=== PATIENT | female | born 1995 | race Two or more races ===

== ENCOUNTER 2018-04-27 22:06 | Emergency (ER) | payer OTHER ==
[~2018-04-27] VITALS: Ht 170.2 cm; Wt 57.2 kg
[2018-04-27 22:35] VITALS: BP 117/62
[2018-04-27] MEDS ORDERED: LEVOTHYROXINE75 MCG ORAL (22:36)
[2018-04-27] MEDS ORDERED: Clindamycin 900mg 50 ML IVPB ONE (23:15)
[2018-04-28] MEDS ORDERED: CLINDAMYCIN HC300 MG ORAL (00:18)
--- NOTE | 2018-04-28 00:18 | Emergency Room Report ---
History of Present Illness General Chief Complaint: Skin Rash/Abscess Source: Patient Present Illness HPI Is a 23-year-old female with no past medical history. She presents with skin infection. She woke up 2 days ago with some rash on her left leg. Itching is worsen. Now with swelling and drainage. No fever chills. No nausea no vomiting. Denies any other complaint. No insect bite that she knew of. Worse with itching and scratching. Allergies: Coded Allergies: No Known Allergies (Unverified , 04/27/18) Patient History Past Medical History: see triage record, old chart reviewed Past Surgical History: none Pertinent Family History: none Social History: Denies: smoking Last Menstrual Period: 2 weeks ago Now: No Immunizations: other Reviewed Nursing Documentation: PMH: Agreed; PSxH: Agreed Review of Systems Eye: Denies: eye pain, blurred vision ENT: Denies: ear pain, nose congestion, throat swelling Respiratory: Denies: cough, shortness of breath Cardiovascular: Denies: chest pain, palpitations Gastrointestinal: Denies: abdominal pain, diarrhea, nausea, vomiting Musculoskeletal: Denies: back pain, joint pain Skin: Reports: rash Neurological: Denies: headache, numbness Endocrine: Denies: increased thirst, increased urine Hematologic/Lymphatic: Denies: easy bruising All Other Systems: negative except mentioned in HPI Physical Exam Vital Signs Date Time Temp Pulse Resp B/P (MAP) Pulse Ox O2 Delivery O2 Flow Rate FiO2 04/27/18 22:31 98.1 72 16 117/62 96 Room Air 98.1 vitals normal Sp02 EP Interpretation: reviewed, normal General Appearance: well appearing, no apparent distress, alert Head: normocephalic, atraumatic Eyes: bilateral eye PERRL, bilateral eye EOMI ENT: hearing grossly normal, normal pharynx Neck: full range of motion, supple, no meningismus Respiratory: chest non-tender, lungs clear, normal breath sounds Cardiovascular #1: regular rate, rhythm, no murmur Gastrointestinal: normal bowel sounds, non tender, no mass, no organomegaly, no bruit, non-distended Musculoskeletal: back normal, gait/station normal, normal range of motion Psychiatric: mood/affect normal Skin: warm/dry, other - She has scattered area of erythema on the lateral aspect of the left leg up the thigh. Each area has pinpoint area of redness with surrounding erythema. The one near her ankle has edema and weeping. Medical Decision Making Diagnostic Impression: Primary Impression: Cellulitis of leg without foot, left ER Course She was cellulitis of her left leg. She did shave her legs are suspect this may be secondary to MRSA and infection of the hair follicle. Antibiotics IV given here. No evidence of any abscess seen. I did culture up one of the weeping lesion. No evidence of DVT. No evidence of necrotizing fasciitis. Last Vital Signs Date Time Temp Pulse Resp B/P (MAP) Pulse Ox O2 Delivery O2 Flow Rate FiO2 04/27/18 22:35 98.1 72 16 117/62 96 Room Air 98.1 Status: improved Disposition: HOME, SELF-CARE Condition: Stable Scripts Clindamycin Hcl (CLINDAMYCIN HCL) 300 Mg Capsule 300 MG ORAL THREE TIMES A DAY, #21 CAP Prov: DYAN SPARKS M.D. 04/28/18 Referrals: [facility],REFERRING (PCP) Additional Instructions: Follow-up with your DrManny or return here in 2 days for recheck. Return if symptom worsen. DYAN SPARKS M.D. Apr 28, 2018 00:18
[2018-04-28 00:30] VITALS: BP 95/63
== END 2018-04-28 00:30 | disposition home or self-care (01) ==
LOC: EMR 22:52
DX: L03.116 Cellulitis of left lower limb (principal)
CPT/HCPCS: 87070; 87205; 96365; 99284; S0077; 99283

== ENCOUNTER 2018-12-04 18:16 | Emergency (ER) | payer OTHER ==
[~2018-12-04] VITALS: Ht 170.2 cm; Wt 59.0 kg
[~2018-12-04 18:16] MED LIST: CLINDAMYCIN HC300 MG ORAL; LEVOTHYROXINE75 MCG ORAL
[2018-12-04] MEDS ORDERED: Acetaminophen 500mg (ES) tab ORAL ONE (19:00)
[2018-12-04 19:28] VITALS: BP 108/60
--- NOTE | 2018-12-04 19:29 | NUR ---
ED Nurse Note:pt. s/p fall pain in right ribs and abrasion on right elbow
[2018-12-04] MEDS ORDERED: Bacitracin Oint UD TOPIC ONE (19:30)
--- NOTE | 2018-12-04 19:44 | Emergency Room Report ---
History of Present Illness General Chief Complaint: Multiple Trauma/Fall Source: Patient Present Illness HPI 23-year-old female patient presents the ER complaining of right rib and elbow pain status post less than 2 hours prior to arrival to ER. Reports that she was walking upstairs when suddenly her knee gave out and she fell onto her right side. Reports right-sided rib pain. States that the wind was initially knocked out of her however she is not having any difficulty breathing at this time except with deep inspiration she experienced some right rib pain. Also complaining of pain in right elbow. Reports pain with movement. Reports swelling and mild abrasion on right elbow. Denies hitting her head or loss consciousness. Denies syncope or dizziness prior to fall. Denies other aggravating or relieving factors. Denies any pain. Allergies: Coded Allergies: No Known Allergies (Unverified , 04/27/18) Patient History Past Medical History: see triage record Last Menstrual Period: 11/12/18 Now: No Reviewed Nursing Documentation: PMH: Agreed; PSxH: Agreed Nursing Documentation-PMH Past Medical History: No History, Except For Review of Systems All Other Systems: negative except mentioned in HPI Physical Exam Vital Signs Date Time Temp Pulse Resp B/P (MAP) Pulse Ox O2 Delivery O2 Flow Rate FiO2 12/04/18 18:18 98.1 88 20 108/60 97 Room Air Sp02 EP Interpretation: reviewed, normal General Appearance: well appearing, no apparent distress, alert, GCS 15, non- toxic Head: normocephalic, atraumatic Eyes: bilateral eye normal inspection, bilateral eye PERRL ENT: hearing grossly normal, normal pharynx, no angioedema, normal voice, uvula midline, moist mucus membranes Neck: full range of motion Respiratory: lungs clear, normal breath sounds, no rhonchi, no respiratory distress, no accessory muscle use, no wheezing, speaking full sentences, other - Tenderness palpation over right lower anterior ribs, no flail chest, no bony deformity Cardiovascular #1: regular rate, rhythm, no edema Cardiovascular #2: 2+ radial (L), 2+ femoral (R) Gastrointestinal: non tender, soft, no mass, non-distended, no guarding, no rebound Musculoskeletal: back normal, digits/nails normal, gait/station normal, normal range of motion, swelling - Posterior right elbow, other - NVI, AIN/PIN/radial nerve intact, cap refill less than 2 seconds, no snuffbox tenderness, tender - Posterior right elbow Neurologic: alert, oriented x3, responsive, motor strength/tone normal, sensory intact Psychiatric: mood/affect normal Skin: abrasions - Right posterior elbow Medical Decision Making PA Attestation Dr. Gil is my supervising Physician whom patient management has been discussed with. Diagnostic Impression: Primary Impression: Contusion of rib on right side Additional Impression: Elbow fracture, right ER Course Pt. presents to the ED c/o right elbow and rib pain s/p fall. Ddx considered but are not limited to fracture, sprain, strain, contusion, dislocation, pneumothorax. No erythema, no warmth to touch, no fever, nontoxic appearing, low suspicion for septic joint. Soft compartments, no pulselessness, no pallor, no paresthesias, low suspicion for compartment syndrome at this time. Vital signs: are WNL, pt. is afebrile Ordered X-ray and pain medication. ER COURSE Bacitracin applied to right elbow abrasion. Provided with pain medication. An X-ray of the chest shows no acute disease or pneumothorax per the preliminary reading. An X-ray of the right ribs shows no fracture per the preliminary reading. Likely contusion causing pain symptoms. An X-ray of the right elbow shows anterior fat pad, possible occult fracture per the preliminary reading. Will splint patient arm and advised to followup in one week with ortho specialist for repeat xrays for to rule our fracture. Reviewed xray with Dr. gil, agrees with assessment and treatment plan. Posterior right arm Splint was applied to the right elbow and was checked afterwards by me showing good alignment and support with distal neurovascular functioning intact. Patient instructed on RICE method: rest, ice, compression, elevation. Patient instructed on rest, ice and heat. Patient instructed to be NWB Contact information for orthopedic urgent care provided, follow-up with urgent care if unable to followup with primary care provider and get referral to affiliate marketing specialist. Followup with primary care provider. Discuss referral to ortho/pain management/ PT as needed. Discuss further imaging with MRI/CT as needed. DISCHARGE: At this time pt. is stable for d/c to home. Patient is resting comfortably, in no acute distress, nontoxic appearing, talking without difficulty. Will provide printed patient care instructions, and any necessary prescriptions. Patient instructed to follow with primary care provider in 3 - 5 days and to request further follow-up as needed. Care plan and follow up instructions have been discussed with the patient prior to discharge. Take medications as directed. Patient questions asked and answered. Patient reports understanding and agreement to treatment plan. ER precautions given, patient instructed to return to ER immediately for any new or worsening of symptoms. - Please note that this Emergency Department Report was dictated using [employer] software, occasionally this can lead to erroneous entry secondary to interpretation by the dictation equipment. Chest X-Ray Diagnostic Results Chest X-Ray Diagnostic Results : Chest X-Ray Ordered: Yes # of Views/Limited/Complete: 1 View Indication: Chest Pain EP Interpretation: Yes PA Xray: Interpretation reviewed, by supervising MD, and agrees with findings. Interpretation: no consolidation, no effusion, no pneumothorax Impression: No acute disease PA Scribe Kala Mcmullen PA-C Other X-Ray Diagnostic Results Other X-Ray Diagnostic Results #1: X-Ray ordered: Right elbow # of Views/Limited Vs Complete: 3 View Indication: Pain EP Interpretation: Yes PA Xray: Interpretation reviewed, by supervising MD, and agrees with findings. Interpretation: no dislocation, no soft tissue swelling, other - anterior fat pad Impression: Other - anterior fat pad, occult fracture PA Scribe Text Ford Mcmullen PA-C Other X-Ray Diagnostic Results #2: X-Ray ordered: Right ribs # of Views/Limited Vs Complete: 2 View Indication: Pain EP Interpretation: Yes PA Xray: Interpretation reviewed, by supervising MD, and agrees with findings. Interpretation: no dislocation, no soft tissue swelling, no fractures Impression: No acute disease PA Scribe Text Ford Mcmullen PA-C Last Vital Signs Date Time Temp Pulse Resp B/P (MAP) Pulse Ox O2 Delivery O2 Flow Rate FiO2 12/04/18 19:28 88 20 Room Air 12/04/18 19:28 98.1 108/60 97 Status: improved Disposition: HOME, SELF-CARE Condition: Stable Scripts Bacitracin/Polymyxin B Sulfate (BACITRACIN-POLYMYXIN OINTMENT) 28.35 Gm Oint...g. 1 APPLIC TP BID, #28 GM Prov: Matt Mcmullen 12/04/18 Ibuprofen* (MOTRIN*) 600 Mg Tablet 600 MG ORAL Q8H PRN for For Pain, #30 TAB 0 Refills Prov: Matt Mcmullen 12/04/18 Patient Instructions: Elbow Fracture, Simple, Rib Contusion Additional Instructions: Patient instructed to follow up with primary care provider and discuss further referral to orthopedics/physical therapy/pain management as needed. If unable to followup with PCP, followup with orthopedic urgent care in 5-7 days , call to schedule appointment. Patient instructed on RICE method: rest, ice, compression, elevation. Patient instructed to NWB. Take medications as directed. Patient questions asked and answered. ER precautions given, patient instructed to return to ER immediately for any new or worsening of symptoms. [facility] [address] [facility] [address] [facility], [id number] [email or web address] Matt Mcmullen Dec 04, 2018 19:44
[2018-12-04] MEDS ORDERED: BACITRACIN-P28.35 GM TP (20:23)
[2018-12-04] MEDS ORDERED: IBUPROFEN600 MG ORAL (20:23)
[2018-12-04 20:33] VITALS: BP 118/72
--- NOTE | 2018-12-04 20:34 | NUR ---
ER DISCHARGE NOTE: Patient is cleared to be discharged per ERMD, pt is aox4, on room air, with stable vital signs. pt was given dc and prescription instructions, pt was able to verbalize understanding, pt id band removed pt is able to ambulate with steady gait. pt took all belongings.
--- NOTE | 2018-12-05 11:45 | Diagnostic Imaging Report ---
Indication: Rib pain, status post fall Technique: 2 views of the right ribs Comparison: none Findings: No acute fractures. No gross pneumothorax. There is mild thoracic scoliotic deformity Impression: Negative
--- NOTE | 2018-12-05 11:46 | Diagnostic Imaging Report ---
Indications:Elbow pain, status post fall Technique: Three or 4 views of the right elbow Comparison: None Findings: No acute fractures. No dislocations. The joint spaces are preserved. No no definite effusion. Impression: Negative
--- NOTE | 2018-12-05 11:47 | Diagnostic Imaging Report ---
Indication: Chest pain, status post fall Technique: One view of the chest Comparison: none Findings: Lungs and pleural spaces are clear. Heart size is normal. There is mild thoracic scoliotic deformity Impression: No acute process
== END 2018-12-04 20:33 | disposition home or self-care (01) ==
LOC: EMR 18:49
DX: S20.211A Contusion of right front wall of thorax, initial encounter (principal); S42.401A Unspecified fracture of lower end of right humerus, initial encounter for closed fracture; W10.9XXA Fall (on) (from) unspecified stairs and steps, initial encounter; Y92.89 Other specified places as the place of occurrence of the external cause
CPT/HCPCS: 71045; 99284

== ENCOUNTER 2019-06-19 20:11 | Emergency (ER) | payer OTHER ==
[~2019-06-19] VITALS: Ht 170.2 cm; Wt 59.0 kg
[~2019-06-19 20:11] MED LIST changes: +BACITRACIN-P28.35 GM TP; +IBUPROFEN600 MG ORAL
[2019-06-19 20:19] VITALS: BP 130/77
[2019-06-19 20:24] VITALS: BP 130/77
[2019-06-19] MEDS ORDERED: BENADRYL25 MG ORAL (21:10)
--- NOTE | 2019-06-19 21:11 | Emergency Room Report ---
History of Present Illness General Chief Complaint: Allergic Reaction Source: Patient Present Illness [facility] This is a 24-year-old female with no past medical history. She presents with chief complaint of possible allergic reaction. She was just started on omeprazole today. She took it around 1:00. Around 5:00 she states she had a headache and felt numbness in her throat. She also felt dizzy and numbness to her fingers. She thought to be allergic reaction. Did not get any better. No nausea no vomiting. No rash. No fever chills but denies any other complaint. No abdominal pain no wheezing. Allergies: Coded Allergies: No Known Allergies (Unverified , 04/27/18) Patient History Past Medical History: see triage record, old chart reviewed Past Surgical History: none Pertinent Family History: none Social History: Denies: smoking Last Menstrual Period: 06/08/19 Now: No Immunizations: other Reviewed Nursing Documentation: PMH: Agreed; PSxH: Agreed Nursing Documentation-PMH Past Medical History: No History, Except For Review of Systems Eye: Denies: eye pain, blurred vision ENT: Denies: ear pain, nose congestion, throat swelling Respiratory: Denies: cough, shortness of breath Cardiovascular: Denies: chest pain, palpitations Gastrointestinal: Denies: abdominal pain, diarrhea, nausea, vomiting Musculoskeletal: Denies: back pain, joint pain Skin: Denies: rash Neurological: Reports: headache; Denies: numbness Endocrine: Denies: increased thirst, increased urine Hematologic/Lymphatic: Denies: easy bruising All Other Systems: negative except mentioned in HPI Physical Exam Vital Signs Date Time Temp Pulse Resp B/P (MAP) Pulse Ox O2 Delivery O2 Flow Rate FiO2 06/19/19 20:19 97.7 66 18 130/77 (94) 98 Room Air Vitals normal Sp02 EP Interpretation: reviewed, normal General Appearance: well appearing, no apparent distress, alert Head: normocephalic, atraumatic Eyes: bilateral eye PERRL, bilateral eye EOMI ENT: hearing grossly normal, normal pharynx Neck: full range of motion, supple, no meningismus Respiratory: chest non-tender, lungs clear, normal breath sounds Cardiovascular #1: regular rate, rhythm, no murmur Gastrointestinal: normal bowel sounds, non tender, no mass, no organomegaly, no bruit, non-distended Musculoskeletal: back normal, gait/station normal, normal range of motion Neurologic: alert, oriented x3 Psychiatric: anxious - Slightly anxious Medical Decision Making Diagnostic Impression: Primary Impression: Headache Qualified Codes: R51 - Headache Additional Impression: Numbness ER Course Patient presents with symptoms atypical for allergic reaction. May be anxiety related. No evidence of bleed, meningitis, CVA or TIA or neoplastic process. Throat showed no evidence of infection or wheezing or stridor. Patient reassured and discharged home. Last Vital Signs Date Time Temp Pulse Resp B/P (MAP) Pulse Ox O2 Delivery O2 Flow Rate FiO2 06/19/19 20:19 97.7 66 18 130/77 (94) 98 Room Air Status: improved Disposition: HOME, SELF-CARE Condition: Stable Scripts Diphenhydramine Hcl* (BENADRYL*) 25 Mg Capsule 50 MG ORAL Q6H PRN for Itching, #30 CAP Prov: Marcelino Santos MD 06/19/19 Additional Instructions: Your symptoms are atypical for allergic reaction. You may try to take them medicine again tomorrow. If same symptoms occur, take Benadryl and stop taking the omeprazole anymore. Follow-up with your doctor in 7 days. Return if symptoms worsen. Marcelino Santos MD Jun 19, 2019 21:11
--- NOTE | 2019-06-19 21:19 | NUR ---
ER DISCHARGE NOTE: Patient is cleared to be discharged per ERMD, pt is aox4, on room air, with stable vital signs. pt was given dc and prescription instructions, pt was able to verbalize understanding, pt id band removed . pt is able to ambulate with steady gait. pt took all belongings.
== END 2019-06-19 21:19 | disposition home or self-care (01) ==
LOC: EMR 20:35
DX: R51 Headache (principal); R20.0 Anesthesia of skin
CPT/HCPCS: 99282